=== PATIENT | male | born 2000 | race Caucasian/White ===

== ENCOUNTER 2022-06-22 07:01 | Emergency (ER) | payer OTHER ==
[2022-06-22 07:21] VITALS: BP 111/86
[2022-06-22] MEDS ORDERED: predniSONE 20 MG TABLET PO STA (07:31)
--- NOTE | 2022-06-22 07:34 | ED Physician Documentation ---
History of Present Illness - Stated complaint Stated Complaint: BACK PX - Chief complaint Chief Complaint: Back Pain - History obtained from History obtained from: Patient - Additonal information Additional information: The patient comes to the emergency department chief complaint of low back pain for the last approximately 6 months. 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 He started to have pain across his low back, which is gradually worsened over time. He states that the pain over time has migrated to his left buttock and sometimes he gets a numbness or tingling sensation going down his leg. He denies any pain shooting down the leg. He states that over the last couple of weeks its gotten worse, and he finally went and saw his primary doctor, who thought he had "pulled a muscle" and gave him a lidocaine patch and Flexeril prescription. The patient states these have not really been helping and he is concerned. He states that this morning, he was trying to go down the stairs when he felt a sudden sharp pain in his lower back that shot up to his mid back. He states this was more on the left than the right. He had to stop for a few seconds to let the pain subside before continuing to descend the stairs. He states he is concerned that something more is wrong and wanted to get it further evaluated. He states his doctors plan if the meds did not work was to send him to physical therapy. He has not had any imaging of any kind. The patient states that the pain is worse when he straightens his back, and is actually better when he bends forward a bit. He has no problem with rotation. He has been able to control his bowels and bladder without difficulty. No fevers. He denies even any remote injuries. Review of Systems Ten Systems: 10 systems reviewed and negative Constitutional: reports: Reviewed and negative Eyes: reports: Reviewed and negative Ears: reports: Reviewed and negative Nose: reports: Reviewed and negative Throat: reports: Reviewed and negative Cardiac: reports: Reviewed and negative Respiratory: reports: Reviewed and negative GI: reports: Reviewed and negative : reports: Reviewed and negative Skin: reports: Reviewed and negative Musculoskeletal: reports: Back pain Neurologic: reports: Reviewed and negative Psychiatric: reports: Reviewed and negative Endocrine: reports: Reviewed and negative Immunocompromised: reports: Reviewed and negative PD PAST MEDICAL HISTORY - Past Medical History Past Medical History: No - Past Surgical History Past Surgical History: No - Present Medications Home Medications: Ambulatory Orders Medication Instructions Recorded Confirmed predniSONE [Deltasone] 60 mg PO DAILY 5 Days #15 tablet 06/22/22 - Allergies Allergies/Adverse Reactions: Allergies Allergy/AdvReac Type Severity Reaction Status Date / Time No Known Drug Allergies Allergy Verified 06/22/22 07:36 - Social History Does the pt smoke?: No Smoking Status: Never smoker PD ED PE NORMAL - Vitals Vital signs reviewed: Yes - General General: Alert and oriented X 3, No acute distress, Well developed/nourished - HEENT HEENT: Atraumatic, PERRL, EOMI, Moist mucous membranes - Neck Neck: Supple, no meningeal sign - Respiratory Respiratory: No respiratory distress - Derm Derm: Normal color, Warm and dry, No rash - Extremities Extremities: No deformity, Other (Tenderness palpation over the lumbar spine around the L1-2 area in the L4-5 area. Tenderness extends from the L4-5 area down to the left SI joint, which is quite tender. Rotational range of motion intact. 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 The patient has had a chronic pain which is gradually worsened, and I suspect that this is related to inflammation and irritation from chronic wear and tear and tensions on certain structures. It is also probable that the patient Has unknowingly exacerbated the problem by favoring and abnormally positioning the areas that are painful, causing other inflammation to develop. I discussed with him that the imaging test that would be most helpful would be MRI, but the patient does not meet criteria for an emergent MRI here in the ED today. As such, this needs to be sorted out with his primary doctor and ordered by him. I have offered the patient a dose of steroids here in the emergency department and a prescription for several days further of the same. The patient would like to go ahead with this. We have discussed the signs and symptoms of acute spinal cord compromise, which should be indications for immediate return to the emergency department. Departure - Departure Disposition: 01 Home, Self Care Clinical Impression: Sciatica Qualifiers: Laterality: left Qualified Code(s): M54.32 - Sciatica, left side Back pain Qualifiers: Back pain location: low back pain Chronicity: chronic Back pain laterality: midline Sciatica presence: with sciatica Sciatica laterality: sciatica of left side Qualified Code(s): M54.42 - Lumbago with sciatica, left side; G89.29 - Other chronic pain Instructions: ED Sciatica, ED Neck Back Pain General Prescriptions: predniSONE [Deltasone] 60 mg PO DAILY 5 Days #15 tablet Comments: As we have discussed, your symptoms are indicative more of a chronic inflammatory process than an acute, potentially spinal cord threatening process. Additionally, you do not have any trauma, either recent or remote, to raise concern for an undiagnosed, more major injury. Your spinal column is very well secured by stabilizing structures and ligaments, and spontaneous compromise of its integrity is exceedingly rare without a major trauma. MRI would be the best imaging choice to further evaluate your spine/back pain; however, this is not emergently indicated, and as such, you will need to continue to work with your primary doctor to have this done. It is often helpful to the physical therapist to have MRI results to guide the choice of therapy, and this can be a helpful adjunct for that reason. You have been treated with a dose of steroids today. A prescription for the same has been electronically transmitted to [facility] pharmacy in [place]. You may take your next dose tomorrow morning. Please make the next possible appointment with your primary doctor to further discuss the plan for your back. Forms: Activity restrictions
== END 2022-06-22 08:06 | disposition home or self-care (01) ==
LOC: ED 07:01
DX: M54.32 Sciatica, left side (principal); G89.29 Other chronic pain
CPT/HCPCS: 99282; 99284; J7512